=== PATIENT | male | born 2000 | race Caucasian/White ===

== ENCOUNTER 2022-08-28 20:49 | Emergency (ER) | payer OTHER, SELFPAY ==
[2022-08-28 20:50] VITALS: BP 167/85; PULSE 125; RESP 16; TEMP 38.8; O2SAT 99; BMI 32.1
--- NOTE | 2022-08-28 21:10 | CT_ITS ---
We are attempting to reach an attending provider to discuss findings. An addendum with communication details will be sent when the communication is complete. STUDY: CT ABDOMEN AND PELVIS WITHOUT CONTRAST REASON FOR EXAM: Male, 22 years old. Abdominal pain fever RADIATION DOSAGE (If Supplied By Facility): CTDIvol = ( 17.38 ) mGy, DLP = ( 950.96 ) mGycm TECHNIQUE: Transaxial images were obtained from the dome of the diaphragm to the symphysis pubis without oral contrast, and without intravenous contrast. Sagittal and coronal images were reconstructed. Individualized dose optimization techniques were used for this CT. COMPARISON: None. FINDINGS: The visualized lung bases are unremarkable. The visualized portions of the heart are within normal limits. Liver is enlarged. Normal gallbladder and extrahepatic biliary system. There is severe splenomegaly. Within the mid aspect of the spleen there is a wedge-shaped low attenuation suspicious for splenic infarct. There is a trace amount of perisplenic fluid possible trace subcapsular fluid or potentially hemorrhage. Normal pancreas. Normal bilateral adrenal glands. Normal right kidney. Normal left kidney. Normal visualized stomach. There is mild distention of the small bowel. There is mild to moderate stool within the ascending colon. There is a decompressed appearance of the descending colon.. There are surgical clips in the region of the appendix consistent with a prior appendectomy. Normal abdominal aorta. Normal inferior vena cava. There are multiple subcentimeter retroperitoneal lymph nodes. There are numerous 5 to 10 mm mesenteric lymph nodes. Normal urinary bladder. Normal visualized prostate gland. There is a small umbilical hernia containing fat. Normal osseous structures. CT/Abdomen/Pelvis without Cont IMPRESSION: Moderate to severe splenomegaly. Wedge-shaped low-attenuation within the spleen image #73 series 601 coronal views and image 54 series 2 suspicious for age-indeterminate splenic infarct, possible subcapsular subtle fluid. Recommend correlation with clinical history. Recommend correlation with any history of lymphoproliferative, leukemia lymphoma, disease, blood dyscrasia, potentially viral illness. Hepatomegaly. Mild ileus. Status post appendectomy. Multiple small reactive mesenteric and retroperitoneal lymphadenopathy. Electronically Signed: Tracey Downing MD at 22:24 EDT ,
--- NOTE | 2022-08-28 21:11 | EX.ED.DYSGE1 ---
HPI History of Present Illness Chief Complaint: Abd Pain Narrative Narrative: Patient presents with a week history of left upper quadrant abdominal pain, fevers and chills. No diarrhea or constipation he has a slight cough but no chest pain or shortness of breath. He has no flank pain or dysuria. PFSH PFSH Allergy/AdvReac Type Severity Reaction Status Date / Time No Known Allergies Allergy Verified 08/28/22 20:50 Social History Smoking Status: Never smoker ROS ROS ED ROS Narrative Past medical history: Reviewed, includes appendectomy and history of splenic enlargement after parvovirus a year ago Medications: Reviewed Social history: Noncontributory Review of systems: General: Fever as in HPI Eyes: No visual changes ENT: No upper airway congestion, normal voice Neck: No neck pain Cardiovascular: No chest pain Respiratory: No shortness of breath or cough Gastrointestinal: Abdominal pain as in HPI Genitourinary: No dysuria Musculoskeletal: Denies myalgias no difficulty with ambulation Skin: No rash Neurological: No memory loss, confusion or any focal weakness EXAM Physical Exam Narrative Exam Narrative: Physical exam General: Patient appears somewhat uncomfortable Head: Normocephalic, Atraumatic Eyes: Conjunctiva not pale ENT: Moist mucous membranes. Very slight pharyngeal erythema but no exudates normal soft palate and uvula. Neck: Supple, Nontender, No lymphadenopathy Cardiovascular: Regular tachycardia. No murmurs Respiratory: No distress, CTA bilaterally, no wheezing. Abdomen: Soft, left upper quadrant tenderness to palpation there is no guarding or rebound no epigastric pain no right upper quadrant pain negative Mace's. No lower abdominal pain or CVA tenderness on palpation Back: Nontender, Normal Inspection. Negative for: CVA tenderness Extremities: Nontender, No edema Skin: Normal color, No rash Const Vital Signs: 08/28/22 20:50 Temperature 102 F H Temperature Source Temporal Pulse Rate 125 H Respiratory Rate 16 Blood Pressure 167/85 H Blood Pressure Mean 112 Pulse Ox 99 MDM MDM MDM Narrative Medical decision making narrative: A. Problems addressed Patient is here with some upper airway congestion and sore throat as well as fevers but he also has left upper quadrant abdominal pain. On a CT he is found to have significant splenomegaly with a splenic infarct. This worried me I talked to general surgery who at this time does not believe the patient needs a splenectomy, I talked to vascular surgery who would not anticoagulate the patient. Patient is found to have mononucleosis therefore no treatment is needed and I do not believe the patient needs to be hospitalized. He feels better after IV fluids. He was given antipyretics. He was told to take antipyretics at home. He is told to avoid any contact sports. He understands the sequelae in the potential consequences if he gets hit in the abdomen. He had splenomegaly last year also with parvovirus thus he understands if anything changes he is to return and he understands that. I talked to his girlfriend who is in the room and I warned her about the potential of getting it also B. Amount and/or complexity of the data 1. CBC CMP and lactate were interpreted by me. I discussed the patient with girlfriend who was in the room. 3. Discussion of management with surgery and vascular surgery. C. Risk of complications and/or morbidity Differential diagnosis: See above Lab Data Labs: Laboratory Results - last 24 hr 08/28/22 08/28/22 08/28/22 21:32 21:32 21:32 WBC 8.2 RBC 4.92 Hgb 14.9 Hct 42.9 MCV 87.2 MCH 30.3 MCHC 34.7 RDW Std Deviation 38.4 RDW Coeff of Any 12.0 Plt Count 116 L MPV 12.3 H Immature Gran % (Auto) 0.400 Neut % (Auto) 26.7 L Lymph % (Auto) 66.1 H [place] % (Auto) 5.3 Eos % (Auto) 0.2 Baso % (Auto) 1.3 H Absolute Neuts (auto) 2.2 Absolute Lymphs (auto) 5.41 H Nucleated RBC % 0 Differential Comment SCANNED Reactive Lymphocytes 2+ Sodium 136 Potassium 3.9 Chloride 104 Carbon Dioxide 26.0 Anion Gap 6 BUN 11 Creatinine 1.21 Estim Creat Clear Calc 103.72 Est GFR (MDRD) Af Amer 98 Est GFR (MDRD) Non-Af 81 BUN/Creatinine Ratio 9.1 L Glucose 102 Lactic Acid 1.1 Calcium 8.4 L Total Bilirubin 0.90 AST 368 H ALT 464 H Alkaline Phosphatase 156 H Troponin I High Sens Cancelled Total Protein 7.5 Albumin 3.6 Globulin 3.9 Albumin/Globulin Ratio 0.9 Lipase 155 Urine Color Urine Clarity Urine pH Ur Specific [place] Urine Protein Urine Glucose (UA) Urine Ketones Urine Occult Blood Urine Nitrite Urine Bilirubin Urine Urobilinogen Ur Leukocyte Esterase Urine RBC Urine WBC Ur Squamous Epith Cells Amorphous Sediment Urine Bacteria Urine Mucus Monoscreen 08/28/22 08/28/22 22:20 22:34 WBC RBC Hgb Hct MCV MCH MCHC RDW Std Deviation RDW Coeff of Any Plt Count MPV Immature Gran % (Auto) Neut % (Auto) Lymph % (Auto) [place] % (Auto) Eos % (Auto) Baso % (Auto) Absolute Neuts (auto) Absolute Lymphs (auto) Nucleated RBC % Differential Comment Reactive Lymphocytes Sodium Potassium Chloride Carbon Dioxide Anion Gap BUN Creatinine Estim Creat Clear Calc Est GFR (MDRD) Af Amer Est GFR (MDRD) Non-Af BUN/Creatinine Ratio Glucose Lactic Acid Calcium Total Bilirubin AST ALT Alkaline Phosphatase Troponin I High Sens Total Protein Albumin Globulin Albumin/Globulin Ratio Lipase Urine Color Yellow Urine Clarity Clear Urine pH 7.0 Ur Specific [place] 1.010 Urine Protein 15 H Urine Glucose (UA) Normal Urine Ketones 15 H Urine Occult Blood Negative Urine Nitrite Negative Urine Bilirubin Negative Urine Urobilinogen 4 H Ur Leukocyte Esterase Negative Urine RBC 0 SEEN Urine WBC 0 SEEN Ur Squamous Epith Cells 0-5 SEEN Amorphous Sediment 1+ PHOS Urine Bacteria 0 SEEN Urine Mucus 0 SEEN Monoscreen POSITIVE H Radiography Diagnostic Testing: Clinical Impression(s) from Imaging Studies Abdomen/Pelvis CT 08/28/22 21:10 IMPRESSION: Moderate to severe splenomegaly. Wedge-shaped low-attenuation within the spleen image #73 series 601 coronal views and image 54 series 2 suspicious for age-indeterminate splenic infarct, possible subcapsular subtle fluid. Recommend correlation with clinical history. Recommend correlation with any history of lymphoproliferative, leukemia lymphoma, disease, blood dyscrasia, potentially viral illness. Hepatomegaly. Mild ileus. Status post appendectomy. Multiple small reactive mesenteric and retroperitoneal lymphadenopathy. Electronically Signed: Tracey Downing MD at 22:24 EDT , ADDENDUM: 08/28/22 2030 IMPRESSION: Moderate to severe splenomegaly. Wedge-shaped low-attenuation within the spleen image #73 series 601 coronal views and image 54 series 2 suspicious for age-indeterminate splenic infarct, possible subcapsular subtle fluid. Recommend correlation with clinical history. Recommend correlation with any history of lymphoproliferative, leukemia lymphoma, disease, blood dyscrasia, potentially viral illness. Hepatomegaly. Mild ileus. Status post appendectomy. Multiple small reactive mesenteric and retroperitoneal lymphadenopathy. N.B. : The above Results were Read Back by Tracey Downing MD to MARILUZ Gamino, and understanding confirmed on 08/28/2022 22:28:25 (ET). Electronically Signed: Tracey Downing MD at 22:24 EDT , Chest X-Ray 08/28/22 21:55 IMPRESSION: Normal x-ray examination of the chest. Electronically Signed: Tracey Downing MD at 22:20 EDT , Chest x-ray interpreted by me as normal Discharge Plan Triage Chief Complaint: Abd Pain ED Provider: Andrez Ayala Dx/Rx/DC Orders Clinical Impression: Mononucleosis, Splenomegaly Primary Care Provider: Bakari Funes NP Referrals: NOT,DEFINED [Non-Staff] - Bakari Funes NP, [employer] OFFICE REPAIRER-C [Primary Care Provider] - 3-5 Days Activity Restrictions/Additional Instructions: No contact sports or any kind of activities that would endanger you hitting her stomach as your spleen could rupture. Disposition Disposition: Home, Self Care
[2022-08-28] MEDS: 0.9% Normal Saline 1,000 ML 1000 ML IV (21:41)
[2022-08-28] MEDS: Ketorolac 15 MG/ML Vial IV (21:42)
[2022-08-28 21:49] LABS: Absolute Lymphocyte Count 5.41 X10^3/uL (0.83-4.51); Absolute Neutrophil Count 2.2 X10^3/uL (2.0-7.7); Basophil# 0.11 X10^3/uL; Basophil% 1.3 % (0-1); Eosinophil# 0.02 X10^3/uL; Eosinophils% 0.2 % (0-5); Hematocrit 42.9 % (40-54); Hemoglobin 14.9 g/dL (13.0-16.5); Lymphocyte # 5.41 X10^3/ul (0.83-4.51); Lymphocyte % 66.1 % (19-41); Mean Corp Hgb Conc 34.7 g/dL (32-36); Mean Corpuscular Hgb 30.3 pg (27.0-32.0); Mean Corpuscular Volume 87.2 fL (80-94); Mean Platelet Vol. 12.3 fl (6.2-12.0); Monocyte# 0.43 X10^3/uL; Monocyte% 5.3 % (0-10); NRBC Flagged by Analyzer 0 % (0-5); Neutrophil # 2.18 X10^3/uL (2.7-7.7); Neutrophil % 26.7 % (47-70); POSITIVE DIFFERENTIAL YES; POSITIVE MORPHOLOGY YES; Platelet Count 116 K/mm3 (150-450); RBC Distribution Width SD 38.4 fl (35.1-43.9); Red Blood Count 4.92 M/mm3 (4.6-6.2); White Blood Count 8.2 K/mm3 (4.4-11.0)
--- NOTE | 2022-08-28 21:55 | RAD_ITS ---
STUDY: X-RAY CHEST REASON FOR EXAM: Male, 22 years old. Fever TECHNIQUE: Single AP portable view of the chest. COMPARISON: None. FINDINGS: The lungs are clear and expanded. There is no demonstrated pleural abnormality. Normal size heart. Normal mediastinum and luz. Normal visualized pulmonary arteries. Normal visualized aortic arch and descending thoracic aorta. Normal visualized thoracic spine. Normal visualized ribs, clavicles, and shoulders. There is no demonstrated abnormality of the visualized soft tissue structures of the upper abdomen. RAD/Chest 1 View (Portable) IMPRESSION: Normal x-ray examination of the chest. Electronically Signed: Tracey Downing MD at 22:20 EDT Reading Location ID and State: [facility] / [place] Tel , Service support ,
[2022-08-28 21:59] LABS: Differential Indicated SCAN CRITERIA MET
[2022-08-28 22:03] LABS: ALB/GLOB Ratio 0.9 RATIO (0.9-2.4); AST(SGOT) 368 U/L (15-37); Alanine Aminotransfer ALT/SGPT 464 U/L (16-61); Albumin, Serum 3.6 g/dL (3.2-5.0); Alkaline Phosphatase 156 U/L (45-117); Anion Gap 6 (5-15); BUN 11 mg/dL (7-18); BUN/Creat Ratio 9.1 RATIO (10-20); Calcium,Total 8.4 mg/dL (8.5-10.1); Chloride 104 mmol/L (98-107); Creatinine, Serum 1.21 mg/dL (0.70-1.30); EST Glomerular Filtration Rate 81 mL/min (>60); Est Glom Filt Rate - Afr Amer 98 mL/min (>60); Estimated Creatinine Clearance 103.72 ml/min; Globulin 3.9 g/dL (2.2-4.2); Glucose 102 mg/dL (74-106); Lipase 155 U/L (73-393); Potassium 3.9 mmol/L (3.5-5.1); Protein, Total 7.5 g/dL (6.4-8.2); Sodium Level 136 mmol/L (136-145)
[2022-08-28 22:09] LABS: Differential Comment SCANNED
[2022-08-28 22:11] LABS: Lactic Acid 1.1 mmol/L (0.4-1.9); Reactive Lymphocyte 2+
[2022-08-28 22:28] LABS: Bacteria 0 SEEN /hpf (None Seen); Mucous, Urine 0 SEEN /hpf (<or=2+); Red Blood Cells-Urine 0 SEEN /hpf (0-5); White Blood Cells 0 SEEN /hpf (0-5)
[2022-08-28 22:29] LABS: Color, Urine Yellow (Yellow); Glucose, Dipstick Normal (Normal); Ketone-Dipstick 15 mg/dl (Negative); Leukocyte Esterase-Dipstick Negative /ul (Negative); Nitrite-Dipstick Negative (Negative); Occult Blood-Urine Negative /ul (Negative); Protein-Dipstick 15 mg/dl (Negative); Urine Bilirubin Dipstick Negative (Negative); Urine Clarity Clear (Clear); Urine Urobilinogen 4 mg/dl (Normal)
[2022-08-28 22:39] LABS: Amorphous Sediment 1+ PHOS; Squamous Epithelial Cells - UA 0-5 SEEN /hpf (0-5)
[2022-08-28 23:08] LABS: Internal QC Validated? YES +Cl - CLEAR BKGD; Monotest POSITIVE (Negative)
== END 2022-08-28 23:38 | disposition home or self-care (01) ==
PROVIDERS: Emergency Provider Emergency Medicine; PCP Nurse Practitioner Family; Visit Provider Emergency Medicine
DX: B27.90 Infectious mononucleosis, unspecified without complication (principal); R10.12 Left upper quadrant pain; R16.1 Splenomegaly, not elsewhere classified
CPT/HCPCS: 71045; 74176; 80053; 81001; 83605; 83690; 85025; 86308; 87633; 96361; 96374; 99283; J7030; A4216

== ENCOUNTER 2024-01-23 14:28 | Emergency (ER) | payer OTHER, SELFPAY ==
[2024-01-23 14:28] VITALS: BP 168/90; PULSE 54; RESP 16; TEMP 36.4; O2SAT 100; BMI 35.3
--- NOTE | 2024-01-23 15:13 | EDS_ITS ---
HPI History of Present Illness Chief Complaint: Abd Pain Detail of Chief Complaint: Left upper quadrant abdominal pain Informant: patient Onset/Context/Timing Onset: Today Context: Sudden Onset Timing: Continuous Quality: Pain/discomfort Location: Left upper quadrant Current Severity: Mild Maximum Severity: Mild Worsened by: Nothing specific Relieved by: Nothing Associated Symptoms Associated Symptoms: Nothing Narrative Narrative: Patient is a 23-year-old male. He has history of recurrent splenomegaly of unknown etiology. He has had multiple scans. He was seen last year for mononucleosis. The splenomegaly started 3 years prior to him having mononucleosis. He has been seen by multiple specialist. The etiology is unknown. 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 Since he developed discomfort he told his coaches and he presents to the emergency department. He does not recall being struck or hit left side that was of any significance. He denies pain referred to the shoulder. He denies orthostatic symptoms. He denies GI symptoms. He does have slight cough that is nonproductive. He states his urines been slightly darker. He states he is trying to drink as much fluids as possible. He has not noted any change in the color, consistency or caliber of his stool. Prior similar symptoms: Yes (Splenomegaly) Recent Illness/Hospitalization: No PFSH PFS Medical History (Updated 01/23/24 @ 17:[address] Brandon Ventura MD) Mononucleosis Splenomegaly Allergy/AdvReac Type Severity Reaction Status Date / Time No Known Allergies Allergy Verified 01/23/24 14:30 Social History (Updated 01/23/24 @ 15:[address] Brandon Vnetura MD) household members: family Smoking Status: Never smoker alcohol intake: current details: On weekends, 1-2 drinks. substance use type: does not use ROS ROS ED Constitutional Constitutional ED: Denies chills, fever(s) or subjective Cardiovascular Cardiovascular: Denies chest pain or palpitations Respiratory/Chest Respiratory/Chest: Reports cough; Denies dyspnea or dyspnea on exertion Gastrointestinal Gastrointestinal: Reports abdominal pain; Denies constipation, diarrhea, melena, nausea or vomiting Genitourinary Genitourinary ED: Denies dysuria, hematuria or urinary frequency Musculoskeletal Musculoskeletal: Denies arthralgias, back pain, myalgias or neck pain Integumentary Denies rash Hematologic/Lymphatic Hematologic/Lymphatic: Reports systems reviewed and no addt'l complaints, except as documented; Denies anemia, easy bleeding or easy bruising EXAM Physical Exam Const Vital Signs: 01/23/24 14:28 01/23/24 16:28 Temperature 97.6 F L Temperature Source Temporal Pulse Rate 54 L 62 Respiratory Rate 16 18 Blood Pressure 168/90 H 148/84 H Blood Pressure Mean 116 105 Pulse Ox 100 98 Oxygen Delivery Method Room Air Room Air Positive well nourished and well developed General Appearance ED: well developed and NAD; Negative for cyanotic, diaphoretic or pallor HEENT Reports dry mucous membranes HEENT Narrative: HEENT is unremarkable. Mouth ED: Yes dry mucous membranes Mouth: dry mucous membranes Eyes PERRL and EOMs intact bilaterally General Eye ED: Negative for pale conjunctiva or scleral icterus Neck no lymphadenopathy and supple Chest Wall inspection of chest normal and palpation of chest normal Resp normal respiratory effort and clear to auscultation bilaterally Cardio regular rhythm, S1 normal heart sound, S2 normal heart sound and no murmurs Rate: bradycardia GI normal to inspection, nondistended, normoactive bowel sounds, non-distended and no masses; Negative for hepatosplenomegaly Palpation: soft and tender LUQ; Negative for guarding or splenomegaly Back/Spine no CVA tenderness Extremity normal to inspection General Extremety ED: Negative for edema or tenderness General Extremity: Negative for edema Neuro oriented x3 and CN's II-XII intact bilaterally Sensorium / Orientation: alert Psych mental status grossly normal Skin no rashes or lesions noted, no wounds and skin turgor normal General Skin Exam: elasticity normal; Negative for jaundice or pallor MDM MDM MDM Narrative Medical decision making narrative: With history of recurrent splenomegaly and the fact that he plays football will obtain CT of the abdomen pelvis to assess for splenomegaly which would prevent him from playing sports. Also obtain CBC to assess white count, H&H differential and platelet count. Will obtain liver enzymes as well as lipase since he admits to drinking on weekends. Imaging of the chest was not obtained since he has normal respiratory rate with no oscillatory findings and a pulse ox of 100%. Lab Data Attestation: I reviewed the patient's lab results. Lab results narrative: Urine is negative for infection. It is turbid. Is most likely due to the fact that he has not been drinking much and practice. Labs: Laboratory Results - last 24 hr 01/23/24 01/23/24 14:42 16:17 WBC 5.0 RBC 5.23 Hgb 15.7 Hct 45.2 MCV 86.4 MCH 30.0 MCHC 34.7 RDW Std Deviation 37.8 RDW Coeff of Any 11.9 Plt Count 162 MPV 12.2 H Immature Gran % (Auto) 0.400 Neut % (Auto) 60.9 Lymph % (Auto) 26.0 [place] % (Auto) 10.1 H Eos % (Auto) 2.0 Baso % (Auto) 0.6 Absolute Neuts (auto) 3.1 Absolute Lymphs (auto) 1.31 Nucleated RBC % 0 Sodium 140 Potassium 4.0 Chloride 108 H Carbon Dioxide 28.0 Anion Gap 4 L BUN 15 Creatinine 1.09 Estim Creat Clear Calc 138.21 Est GFR (MDRD) Af Amer 109 Est GFR (MDRD) Non-Af 90 BUN/Creatinine Ratio 13.8 Glucose 95 Calcium 9.3 Total Bilirubin 0.60 AST 32 ALT 35 Alkaline Phosphatase 107 Total Protein 7.5 Albumin 4.1 Globulin 3.4 Albumin/Globulin Ratio 1.2 Lipase 40 Urine Color Yellow Urine Clarity Turbid Urine pH 7.0 Ur Specific [place] 1.015 Urine Protein 15 H Urine Glucose (UA) Normal Urine Ketones Negative Urine Occult Blood Negative Urine Nitrite Negative Urine Bilirubin Negative Urine Urobilinogen Normal Ur Leukocyte Esterase Negative Radiography Diagnostic Testing: Clinical Impression(s) from Imaging Studies Abdomen/Pelvis CT 01/23/24 15:18 IMPRESSION: Mild splenomegaly markedly improved since prior study. No other definite acute or significant abnormality seen. Electronically Signed: Garret Welch MD at 16:41 EDT , Patient was informed he has splenomegaly. He will not be able to participate in football. He will need to follow-up at the [facility] for clearance. Discharge Plan Triage Chief Complaint: Abd Pain ED Provider: Brandon Ventura Dx/Rx/DC Orders Clinical Impression: Splenomegaly, Dehydration, Acute abdominal pain in left upper quadrant Stand Alone Forms: ED Work / School Excuse Primary Care Provider: Bakari Funes NP Referrals: Bakari Funes NP, [employer] SERV[employer] AGENT-[facility] [Primary Care Provider] - Activity Restrictions/Additional Instructions: Your CAT scan reveals that your spleen is enlarged. Recommendation is no contact sports that puts you at risk for potential injury. Print Language: Nepali Disposition Disposition: Home, Self Care
--- NOTE | 2024-01-23 15:18 | CT_ITS ---
STUDY: CT ABDOMEN AND PELVIS WITH CONTRAST REASON FOR EXAM: Male, 23 years old. LUQ with history of recurrent splenomegaly RADIATION DOSAGE (If Supplied By Facility): CTDIvol = ( 17.19 ) mGy, DLP = ( 2010.72 ) mGycm TECHNIQUE: Transaxial images were obtained from the dome of the diaphragm to the symphysis pubis without oral contrast. IV 100mL [id number]-300 was administered. Sagittal and coronal images were reconstructed. Complete The Individualized dose optimization techniques were used for this CT. COMPARISON: None. FINDINGS: The visualized lung bases are unremarkable. The visualized portions of the heart are within normal limits. Normal liver. Normal gallbladder and extrahepatic biliary system. Normal pancreas. Mild splenomegaly. Greatest dimension of the spleen is currently 14.5 cm. This is a significant improvement since prior exam. Normal bilateral adrenal glands. Normal right kidney. Normal left kidney. Normal visualized stomach. Normal small intestine. Normal colon. There are surgical clips in the region of the appendix consistent with a prior appendectomy. Normal abdominal aorta. Normal inferior vena cava. Normal retroperitoneum. Normal urinary bladder. Normal abdominal wall. Normal osseous structures. CT/Abdomen/Pelvis W IV Cont ONLY IMPRESSION: Mild splenomegaly markedly improved since prior study. No other definite acute or significant abnormality seen. Electronically Signed: Garret Welch MD at 16:41 EDT ,
[2024-01-23 15:36] LABS: Absolute Lymphocyte Count 1.31 X10^3/uL (0.83-4.51); Absolute Neutrophil Count 3.1 X10^3/uL (2.0-7.7); Basophil# 0.03 X10^3/uL; Basophil% 0.6 % (0-1); Hematocrit 45.2 % (40-54); Hemoglobin 15.7 g/dL (13.0-16.5); Lymphocyte # 1.31 X10^3/ul (0.83-4.51); Mean Corp Hgb Conc 34.7 g/dL (32-36); Mean Corpuscular Volume 86.4 fL (80-94); Mean Platelet Vol. 12.2 fl (6.2-12.0); Monocyte# 0.51 X10^3/uL; Monocyte% 10.1 % (0-10); NRBC Flagged by Analyzer 0 % (0-5); Neutrophil # 3.06 X10^3/uL (2.7-7.7); Neutrophil % 60.9 % (47-70); Platelet Count 162 K/mm3 (150-450); RBC Distribution Width CV 11.9 % (11.6-14.6); RBC Distribution Width SD 37.8 fl (35.1-43.9); Red Blood Count 5.23 M/mm3 (4.6-6.2)
[2024-01-23 15:57] LABS: ALB/GLOB Ratio 1.2 RATIO (0.9-2.4); AST(SGOT) 32 U/L (15-37); Alanine Aminotransfer ALT/SGPT 35 U/L (16-61); Albumin, Serum 4.1 g/dL (3.2-5.0); Alkaline Phosphatase 107 U/L (45-117); Anion Gap 4 (5-15); BUN 15 mg/dL (7-18); BUN/Creat Ratio 13.8 RATIO (10-20); Calcium,Total 9.3 mg/dL (8.5-10.1); Chloride 108 mmol/L (98-107); Creatinine, Serum 1.09 mg/dL (0.70-1.30); EST Glomerular Filtration Rate 90 mL/min (>60); Est Glom Filt Rate - Afr Amer 109 mL/min (>60); Estimated Creatinine Clearance 138.21 ml/min; Globulin 3.4 g/dL (2.2-4.2); Glucose 95 mg/dL (74-106); Lipase 40 U/L (13-75); Protein, Total 7.5 g/dL (6.4-8.2); Sodium Level 140 mmol/L (136-145)
[2024-01-23] MEDS: 0.9% Normal Saline (1000mL) 1,000 ML 1000 ML IV (16:15)
[2024-01-23 16:28] VITALS: BP 148/84; PULSE 62; RESP 18; O2SAT 98
[2024-01-23 16:38] LABS: Color, Urine Yellow (Yellow); Glucose, Dipstick Normal (Normal); Ketone-Dipstick Negative (Negative); Leukocyte Esterase-Dipstick Negative /ul (Negative); Nitrite-Dipstick Negative (Negative); Occult Blood-Urine Negative /ul (Negative); Protein-Dipstick 15 mg/dl (Negative); Specific Gravity, Urine 1.015 (1.002-1.030); Urine Bilirubin Dipstick Negative (Negative); Urine Clarity Turbid (Clear); Urine Urobilinogen Normal (Normal)
[2024-01-23 18:00] VITALS: BP 154/94; PULSE 65; RESP 16; TEMP 36.1; O2SAT 98
== END 2024-01-23 18:04 | disposition home or self-care (01) ==
PROVIDERS: Emergency Provider Emergency Medicine; PCP Nurse Practitioner Family; Referring Provider Emergency Medicine; Visit Provider Emergency Medicine
DX: R16.1 Splenomegaly, not elsewhere classified (principal); E86.0 Dehydration; B27.90 Infectious mononucleosis, unspecified without complication; R10.12 Left upper quadrant pain
CPT/HCPCS: 74177; 80053; 81002; 83690; 85025; 96360; 96361; 99283; J7030; Q9967; A4216